=== PATIENT | female | born 1965 | race Hispanic/Latino ===

== ENCOUNTER 2016-12-30 07:22 | Day surgery (SDC) | payer BC ==
[2016-12-30] MEDS ORDERED: Lactated Ringer's 1,000 ML IV ONE (07:38)
[2016-12-30] MEDS ORDERED: Propofol 10 mg/ml Inj (20 ML) ONE (07:53)
[2016-12-30] MEDS ORDERED: Lidocaine 2% MPF (5 ml) Inj ONE (07:53)
[2016-12-30 08:53] VITALS: TEMP 98; O2SAT 98
[2016-12-30 09:13] VITALS: BP 114/72; PULSE 66; RESP 20
== END 2016-12-30 09:14 | disposition home or self-care (01) ==
LOC: H.ENDO 07:22
PROVIDERS: ATTEND Internal Medicine Gastroenterology
DX: Z12.11 Encounter for screening for malignant neoplasm of colon (principal); K57.30 Diverticulosis of large intestine without perforation or abscess without bleeding; K64.8 Other hemorrhoids; D12.0 Benign neoplasm of cecum; K44.9 Diaphragmatic hernia without obstruction or gangrene; K30 Functional dyspepsia; K29.50 Unspecified chronic gastritis without bleeding
CPT/HCPCS: 43239; 45380; 88305; J2704; J7120